=== PATIENT | female | born 1945 | race Caucasian/White ===

== ENCOUNTER 2024-09-18 12:13 | Inpatient (IN) | payer OTHER ==
[~2024-09-18] VITALS: Ht 30.5 cm; Wt 49.9 kg
[2024-09-18] MEDS ORDERED: AMLODIPINE BESYL5 MG PO (12:49)
[2024-09-18] MEDS ORDERED: GABAPENTIN800 M1 PO (12:50)
[2024-09-18] MEDS ORDERED: GLIPIZIDE XL5 MG PO (12:50)
[2024-09-18] MEDS ORDERED: LANTUS SOL100 UNIT/1 (12:50)
[2024-09-18] MEDS ORDERED: [UNRECOGNIZED DRUG - OTHER] PO (12:51)
[2024-09-18] MEDS ORDERED: SIMVASTATIN5 MG (12:51)
[2024-09-18] MEDS ORDERED: ZESTRIL40 M1 PO (12:51)
[2024-09-18] MEDS ORDERED: TOPROL XL25 M1 PO (12:51)
[2024-09-26] MEDS ORDERED: METRONIDAZOLE/SODIUM CHLORIDE 500 MG/100 ML PIGGYBACK IV ONE (10:38)
[2024-09-26] MEDS ORDERED: CEFTRIAXONE SODIUM 2,000 MG VIAL ONE (10:38)
[2024-09-26] MEDS ORDERED: BUPIVACAINE HCL/Mpf 0.5% 10ML VIAL ONE (11:46)
[2024-09-26] MEDS ORDERED: DIBUCAINE 30 GM TUBE ONE (11:46)
[2024-09-26] MEDS ORDERED: HEMOSTATIC MATRIX 1 KIT KIT TOP ONE (11:47)
[2024-09-26] MEDS ORDERED: POVIDONE-IODINE 118 ML BOTT TOP ONE (11:47)
[2024-09-26] MEDS ORDERED: LIDOCAINE HCL 1%/EPINEPHRINE 20ML VIAL IJ ONE (11:47)
[2024-09-26] MEDS ORDERED: MORPHINE SULFATE 4 MG/ML CARTRIDGE IV PRN (13:30)
[2024-09-26] MEDS ORDERED: OxyCODONE HCL 5 MG TABLET (ROXICODONE) PO PRN (13:30)
[2024-09-26] MEDS ORDERED: 0.9 % SODIUM CHLORIDE 1,000 ML IV SCH (13:30)
[2024-09-26] MEDS ORDERED: ONDANSETRON HCL 2 MG/ML VIAL IV PRN (13:30)
[2024-09-26] MEDS ORDERED: ACETAMINOPHEN 500 MG GEL..CAP PO SCH (14:00)
[2024-09-26] MEDS ORDERED: MORPHINE SULFATE 2 MG/ML CARTRIDGE IV ONE (14:15)
[2024-09-26 15:40] LABS: BASO % 0.2 % (0.1-1.2); EOS # 0.03 (0.04-0.54); EOS % 0.4 % (0.7-7.0); HEMATOCRIT 34.4 % (34.1-44.9); LYMPH # 1.44 (1.18-3.74); MEAN CORPUSCULAR HEMOGLOBIN 32.9 pg (25.6-32.2); MONO # 0.43 (0.24-0.82); MONO % 5.4 % (4.7-12.5); NEUT # 6.08 (1.56-6.13); NEUT % 75.8 % (34.0-71.1); PLATELET COUNT 197 K/uL (163-369); RED BLOOD COUNT 3.65 M/uL (3.93-5.22); RED CELL DISTRIBUTION WIDTH 11.9 % (11.6-14.4)
[2024-09-26] MEDS ORDERED: GABAPENTIN 300 MG CAPSULE PO SCH (17:00)
[2024-09-26] MEDS ORDERED: SIMETHICONE 125 MG CAPSULE PO SCH (17:00)
[2024-09-26] MEDS ORDERED: POLYETHYLENE GLYCOL 3350 17 GM BLIST.PACK PO SCH (17:00)
[2024-09-26] MEDS ORDERED: HYOSCYAMINE SULFATE 0.125 MG TAB.SUBL SL SCH (17:00)
[2024-09-26] MEDS ORDERED: METOCLOPRAMIDE HCL 5 MG/ML VIAL IV SCH (17:00)
[2024-09-26] MEDS ORDERED: CELECOXIB 200 MG CAPSULE PO SCH (17:00)
[2024-09-26] MEDS ORDERED: DEXTROSE 50 % IN WATER 0.5 G/ML VIAL IV PRN (18:45)
[2024-09-26] MEDS ORDERED: INSULIN LISPRO 1,000 UNIT/10 ML UNITS SUBCUTANEO PRN (18:45)
[2024-09-26] MEDS ORDERED: hydrALAZINE HCL 20 MG VIAL IV PRN (18:45)
[2024-09-26] MEDS ORDERED: METOPROLOL SUCCINATE 25 MG TAB.SR.24H PO SCH (21:00)
[2024-09-26] MEDS ORDERED: FAMOTIDINE/PF 20 MG/2 ML VIAL IV PUSH SCH (21:00)
[2024-09-26] MEDS ORDERED: AMLODIPINE BESYLATE 5 MG TABLET PO SCH (21:00)
[2024-09-27 01:22] VITALS: BP 94/52; O2SAT 96
[2024-09-27 07:02] LABS: BASO % 0.2 % (0.1-1.2); EOS # 0.02 (0.04-0.54); EOS % 0.2 % (0.7-7.0); HEMATOCRIT 30.1 % (34.1-44.9); HEMOGLOBIN 10.3 g/dL (11.2-15.7); LYMPH # 1.83 (1.18-3.74); LYMPH % 14.3 % (19.3-53.1); MEAN CORPUSCULAR HEMOGLOBIN 33.6 pg (25.6-32.2); MONO # 0.57 (0.24-0.82); MONO % 4.5 % (4.7-12.5); NEUT # 10.27 (1.56-6.13); NEUT % 80.4 % (34.0-71.1); PLATELET COUNT 144 K/uL (163-369); RED BLOOD COUNT 3.07 M/uL (3.93-5.22); RED CELL DISTRIBUTION WIDTH 12.4 % (11.6-14.4)
[2024-09-27 07:04] LABS: ALBUMIN 2.8 gm/dL (3.4-5.0); CREATININE SERUM 1.26 mg/dL (0.55-1.02); GFR 40.86; MAGNESIUM 1.7 mg/dL (1.8-2.4); PHOSPHOROUS 3.2 mg/dL (2.5-4.9); POTASSIUM 4.9 mEq/L (3.5-5.1)
[2024-09-27 08:00] VITALS: BP 96/57; O2SAT 95
[2024-09-27] MEDS ORDERED: LACTOBACILLUS ACIDOPHILUS 1 CAP CAP PO SCH (09:00)
[2024-09-27] MEDS ORDERED: LISINOPRIL 40 MG TABLET PO SCH (09:00)
[2024-09-27] MEDS ORDERED: LACTULOSE 20 G/30 ML BLIST.PACK PO SCH (09:00)
[2024-09-27] MEDS ORDERED: MAGNESIUM SULFATE IN WATER 50 ML IV NR (11:00)
[2024-09-27 12:00] VITALS: BP 110/56; O2SAT 95
[2024-09-27] MEDS ORDERED: SIMVASTATIN 20 MG TABLET PO SCH (17:00)
[2024-09-27] MEDS ORDERED: ENOXAPARIN SODIUM 40 MG/0.4 ML SYRINGE SUBCUTANEO SCH (17:00)
[2024-09-27 17:07] VITALS: BP 116/48; O2SAT 97
[2024-09-28] MEDS ORDERED: ENOXAPARIN SODIUM 40 MG/0.4 ML SYRINGE SUBCUTANEO SCH (09:00)
== END 2024-09-27 18:09 | disposition home or self-care (01) | DRG 330 ==
LOC: O/R 09-26 09:48 → SURH 09-26 09:48
PROVIDERS: ADMIT Colon & Rectal Surgery; ATTEND Colon & Rectal Surgery
PROC: 0DBP7ZZ Excision of Rectum, Via Natural or Artificial Opening (ICD-10-PCS; 2024-09-26)
PROC: 0DQR0ZZ Repair Anal Sphincter, Open Approach (ICD-10-PCS; 2024-09-26)
PROC: 0JQC0ZZ Repair Pelvic Region Subcutaneous Tissue and Fascia, Open Approach (ICD-10-PCS; principal; 2024-09-26 17:45)
DX: K62.3 Rectal prolapse (principal); K92.1 Melena; R15.9 Full incontinence of feces; I13.10 Hypertensive heart and chronic kidney disease without heart failure, with stage 1 through stage 4 chronic kidney disease, or unspecified chronic kidney disease; E11.22 Type 2 diabetes mellitus with diabetic chronic kidney disease; N18.30 Chronic kidney disease, stage 3 unspecified; Z79.4 Long term (current) use of insulin; N81.6 Rectocele

== ENCOUNTER 2024-10-11 12:05 | Emergency (ER) | payer OTHER ==
[~2024-10-11] VITALS: Ht 154.9 cm; Wt 49.9 kg
[~2024-10-11 12:05] MED LIST: AMLODIPINE BESYL5 MG PO; GABAPENTIN800 M1 PO; GLIPIZIDE XL5 MG PO; LANTUS SOL100 UNIT/1; SIMVASTATIN5 MG; TOPROL XL25 M1 PO; ZESTRIL40 M1 PO; [UNRECOGNIZED DRUG - OTHER] PO
[2024-10-11 12:51] VITALS: BP 166/61; O2SAT 99
[2024-10-11] MEDS ORDERED: KETOROLAC TROMETHAMINE 30 MG VIAL IV ONE (13:15)
[2024-10-11] MEDS ORDERED: 0.9 % SODIUM CHLORIDE 1,000 ML IV SCH (13:15)
[2024-10-11] MEDS ORDERED: KETOROLAC TROMETHAMINE 30 MG VIAL ONE (13:17)
[2024-10-11] MEDS ORDERED: BARIUM SULFATE 450 ML ORAL.SUSP PO ONE (13:18)
[2024-10-11 13:54] LABS: BASO % 0.1 % (0.1-1.2); EOS # 0.01 (0.04-0.54); EOS % 0.1 % (0.7-7.0); HEMATOCRIT 29.3 % (34.1-44.9); HEMOGLOBIN 10.4 g/dL (11.2-15.7); LYMPH # 1.99 (1.18-3.74); LYMPH % 12.1 % (19.3-53.1); MEAN CORPUSCULAR HEMOGLOBIN 32.5 pg (25.6-32.2); MONO # 0.68 (0.24-0.82); MONO % 4.1 % (4.7-12.5); NEUT # 13.62 (1.56-6.13); NEUT % 83.2 % (34.0-71.1); PLATELET COUNT 318 K/uL (163-369); RED CELL DISTRIBUTION WIDTH 11.5 % (11.6-14.4)
[2024-10-11 14:36] LABS: ALBUMIN 3.6 gm/dL (3.4-5.0); BILIRUBIN TOTAL 0.56 mg/dL (0.3-1.2); CALCIUM 9.5 mg/dL (8.5-10.1); CREATININE SERUM 1.11 mg/dL (0.55-1.02); GFR 47.29; POTASSIUM 4.13 mEq/L (3.5-5.1); TOTAL PROTEIN 7.6 gm/dL (6.4-8.2)
[2024-10-11 14:52] LABS: URINE APPEARANCE Clear; URINE BILIRRUBIN Negative (NEGATIVE); URINE BLOOD Negative; URINE COLOR Yellow; URINE GLUCOSE Negative (NEGATIVE); URINE KETONE Negative (NEGATIVE); URINE LEUKOCYTE Small; URINE NITRATE Negative; URINE PROTEIN Negative (NEGATIVE); URINE UROBILINOGEN 0.2 E.U./dl
[2024-10-11 14:56] LABS: URINE BACTERIA 19.5 uL (0.0-1933); URINE RBC 3.9 uL (0.0-20.8)
[2024-10-11 14:59] LABS: URINE EPITHELIAL CELLS 0.9 uL (0.0-38.8)
[2024-10-11] MEDS ORDERED: PEPCID AC20 MG PO (17:32)
[2024-10-11] MEDS ORDERED: METRONIDAZOLE500 MG PO (17:32)
[2024-10-11] MEDS ORDERED: PROBIOTIC1 EAC2 PO (17:32)
[2024-10-11] MEDS ORDERED: CIPRO500 MG PO (17:32)
[2024-10-11] MEDS ORDERED: LEVSIN/SL0.125 MG SL (17:32)
[2024-10-11] MEDS ORDERED: ANALPRAM HC 2.530 GM RECTAL (17:57)
== END 2024-10-11 18:01 | disposition home or self-care (01) ==
LOC: ER 13:00
PROVIDERS: Emergency Medicine
DX: R10.9 Unspecified abdominal pain (principal); T81.9XXA Unspecified complication of procedure, initial encounter; I10 Essential (primary) hypertension; E11.9 Type 2 diabetes mellitus without complications; Z79.4 Long term (current) use of insulin
CPT/HCPCS: 36415; 74177; 96365; 96366; 99284; J1885; J7030; Q9965